=== PATIENT | male | born 1995 | race Two or more races ===

== ENCOUNTER 2017-06-02 19:01 | Outpatient (CLI) | payer MEDICAID | END 2017-06-02 23:59 | disposition EMS.NT | LOC: EMS 19:01 | PROVIDERS: ATTEND Surgery | DX: R10.32 Left lower quadrant pain (principal); S60.811A Abrasion of right wrist, initial encounter; S80.212A Abrasion, left knee, initial encounter; V28.4XXA Motorcycle driver injured in noncollision transport accident in traffic accident, initial encounter; Y92.413 State road as the place of occurrence of the external cause ==